=== PATIENT | female | born 1990 | race Caucasian/White ===

== ENCOUNTER 2019-05-19 07:39 | Inpatient (IN) | payer OTHER ==
[~2019-05-19] VITALS: Ht 167.6 cm; Wt 3.2 kg
[2019-05-19] MEDS ORDERED: PRENATAL 19 TA1 EAC1 PO (08:45)
[2019-05-19] MEDS ORDERED: SYNTHROID125 MCG PO (10:16)
[2019-05-22] MEDS ORDERED: NAPROXEN500 MG PO (09:09)
[2019-05-22] MEDS ORDERED: PRENATAL + DHA1 EAC1 PO (09:09)
== END 2019-05-22 20:10 | DRG 785 ==
LOC: OB/GYN 07:39 → O/R 10:16 → OB/GYN 17:38
PROVIDERS: ADMIT Obstetrics & Gynecology
PROC: 4A1HXCZ Monitoring of Products of Conception, Cardiac Rate, External Approach (ICD-10-PCS; 2019-05-19)
PROC: 0UB70ZZ Excision of Bilateral Fallopian Tubes, Open Approach (ICD-10-PCS; 2019-05-19)
PROC: 10D00Z1 Extraction of Products of Conception, Low, Open Approach (ICD-10-PCS; principal; 2019-05-19 16:30)
DX: O34.211 Maternal care for low transverse scar from previous cesarean delivery (principal); O75.82 Onset (spontaneous) of labor after 37 completed weeks of gestation but before 39 completed weeks gestation, with delivery by (planned) cesarean section; O82 Encounter for cesarean delivery without indication; Z30.2 Encounter for sterilization; Z37.0 Single live birth; Z3A.38 38 weeks gestation of pregnancy; Z22.330 Carrier of Group B streptococcus